=== PATIENT | female | born 1985 | race Two or more races ===

== ENCOUNTER 2016-12-22 10:08 | Inpatient (IN) | payer MEDICAID ==
[~2016-12-22] VITALS: Ht 162.6 cm; Wt 52.2 kg
[2016-12-22] MEDS ORDERED: SODIUM CHLORIDE 0.9% 1,000 ML IV ONE (12:20)
[2016-12-22] MEDS ORDERED: MORPHINE SULFATE 4 MG/ML CPJ (NOT FOR IM USE) IV STA (12:20)
[2016-12-22] MEDS ORDERED: ONDANSETRON HCL 4MG/2ML VIAL IV STA (12:20)
[2016-12-22 12:33] LABS: HEMATOCRIT. 25.1 % (36.0-48.0); HEMOGLOBIN. 7.2 g/dL (12.0-16.0); MEAN CORPUSCULAR HEMOGLOBIN 15.6 pg (28.0-32.0); MEAN CORPUSCULAR VOLUME 54.8 fL (81.0-99.0); MEAN PLATELET VOLUME 8.9 fl (7.4-10.4); PLATELET 436 x1000/uL (130-400); RED BLOOD CELL COUNT 4.59 mill/uL (4.2-5.4)
[2016-12-22 12:38] LABS: CHLORIDE 107 mEq/L (98-107)
[2016-12-22 12:41] LABS: PARTIAL THROMBOPLASTIN TIME 25.1 sec (23.4-31.0); PROTHROMBIN TIME 10.7 sec (9.4-11.6)
[2016-12-22 12:44] LABS: HCG SCREEN NEGATIVE
[2016-12-22 12:47] LABS: CARBON DIOXIDE 24 mEq/L (21-32)
[2016-12-22] MEDS ORDERED: MORPHINE SULFATE 4 MG/ML CPJ (NOT FOR IM USE) IV ONE (13:30)
[2016-12-22 13:44] LABS: PLATELET ESTIMATE INCREASED
[2016-12-22 14:06] LABS: CLARITY URINE CLEAR (CLEAR); COLOR URINE YELLOW (YELLOW); GLUCOSE URINE NEGATIVE (NEGATIVE); KETONES URINE 2+ (NEGATIVE); LEUKOCYTE ESTERASE URINE TRACE (NEGATIVE); NITRITE URINE NEGATIVE (NEGATIVE); OCCULT BLOOD URINE NEGATIVE (NEGATIVE); PROTEIN URINE NEGATIVE (NEGATIVE); SPECIFIC GRAVITY URINE 1.024 (1.005-1.030); UROBILINOGEN URINE 0.2 E.U./dL (0.2-1.0)
[2016-12-22] MEDS ORDERED: POTASSIUM CHLORIDE 20MEQ TABLET SR PO ONE (14:15)
[2016-12-22 14:18] LABS: *AMPHETAMINES SCREEN URINE NEGATIVE (NEGATIVE); *BARBITURATES SCREEN URINE NEGATIVE (NEGATIVE); *BENZODIAZEPINES SCREEN URINE NEGATIVE (NEGATIVE); *COCAINE SCREEN URINE NEGATIVE (NEGATIVE); METHADONE URINE SCREEN NEGATIVE (NEGATIVE); PHENCYCLIDINE URINE SCREEN NEGATIVE (NEGATIVE)
[2016-12-22 14:37] LABS: CANNABINOID URINE SCREEN PRESUMTIVE POSITIVE (NEGATIVE); OPIATES URINE SCREEN PRESUMTIVE POSITIVE (NEGATIVE)
[2016-12-22] MEDS ORDERED: IPRATROPIUM/ALBUTEROL 0.5-3(2.5)MG/3ML NEB INH PRN (15:45)
[2016-12-22] MEDS ORDERED: ACETAMINOPHEN 325MG TABLET PO PRN (15:45)
[2016-12-22] MEDS ORDERED: CLONIDINE 0.1MG TABLET PO PRN (15:45)
[2016-12-22] MEDS: DEXT 5%/0.45% NACL 1000ML 1,000 ML IV SCH ×2 (18:55→23:15)
[2016-12-22] MEDS: ONDANSETRON HCL 4MG/2ML VIAL IV PRN (18:56)
[2016-12-22] MEDS: MORPHINE SULFATE 4 MG/ML CPJ (NOT FOR IM USE) IV PRN (18:56)
[2016-12-22 22:00] VITALS: BP 122/90
[2016-12-22 22:15] VITALS: BP 110/66
[2016-12-22] MEDS ORDERED: ENOXAPARIN 40MG/0.4ML SYR SUBCUT SCH (22:30)
[2016-12-23] VITALS (12 sets, daily range): BP systolic 92–114; BP diastolic 53–70
[2016-12-23] MEDS: MORPHINE SULFATE 4 MG/ML CPJ (NOT FOR IM USE) IV PRN ×3 (00:06→12:26)
[2016-12-23 01:14] LABS: TOTAL IRON BINDING CAPACITY 288 ug/dL (250-450)
[2016-12-23] MEDS: PANTOPRAZOLE 40MG DR TABLET PO SCH ×2 (01:17→06:13)
[2016-12-23] MEDS: DEXT 5%/0.45% NACL KCL 20MEQ/L 1,000 ML IV SCH ×2 (01:45→12:00)
[2016-12-23 07:35] LABS: CHLORIDE 110 mEq/L (98-107)
[2016-12-23 07:59] LABS: VITAMIN B12 SERUM 303 pg/mL (211-911)
[2016-12-23 08:25] LABS: CARBON DIOXIDE 21 mEq/L (21-32); HDL CHOLESTEROL 42 mg/dL (40-59); LDL CHOLESTEROL 56 mg/dL (5-100); T4 FREE 1.18 ng/dL (0.76-1.46); TROPONIN I < 0.02 ng/mL (0.00-0.04)
[2016-12-23 09:38] LABS: BASOPHILS % 0.4 % (0.0-2.0); EOSINOPHILS % 1.1 % (0.0-5.0); LYMPHOCYTES % 47.4 % (20.0-50.0); MEAN CORPUSCULAR HEMOGLOBIN 15.8 pg (28.0-32.0); MEAN CORPUSCULAR VOLUME 55.1 fL (81.0-99.0); MONOCYTES % 4.7 % (2.0-8.0); NEUTROPHILS % 46.4 % (40.0-76.0); PLATELET 360 x1000/uL (130-400); RED BLOOD CELL COUNT 3.86 mill/uL (4.2-5.4); RED CELL DISTRIBUTION WIDTH 20.1 % (11.6-14.6)
[2016-12-23 09:45] LABS: HEMATOCRIT. 21.2 % (36.0-48.0); HEMOGLOBIN. 6.1 g/dL (12.0-16.0)
[2016-12-23] MEDS: ONDANSETRON HCL 4MG/2ML VIAL IV PRN (12:25)
[2016-12-23 17:43] LABS: BASOPHILS % 0.4 % (0.0-2.0); EOSINOPHILS % 1.1 % (0.0-5.0); HEMATOCRIT. 31.6 % (36.0-48.0); HEMOGLOBIN. 9.5 g/dL (12.0-16.0); MEAN CORPUSCULAR VOLUME 63.5 fL (81.0-99.0); MONOCYTES % 4.5 % (2.0-8.0); PLATELET 334 x1000/uL (130-400); RED BLOOD CELL COUNT 4.98 mill/uL (4.2-5.4); RED CELL DISTRIBUTION WIDTH 29.9 % (11.6-14.6)
== END 2016-12-23 19:00 | disposition home or self-care (01) | DRG 532 ==
LOC: ER 13:30 → 6EST 14:16 → ENRESERV 21:09 → 6WST 12-23 02:31
PROVIDERS: ADMIT Internal Medicine; ATTEND Internal Medicine
PROC: 30233N1 Transfusion of Nonautologous Red Blood Cells into Peripheral Vein, Percutaneous Approach (ICD-10-PCS; principal; 2016-12-23)
DX: D25.9 Leiomyoma of uterus, unspecified (principal); D62 Acute posthemorrhagic anemia; E87.6 Hypokalemia; D64.9 Anemia, unspecified; K21.9 Gastro-esophageal reflux disease without esophagitis; Z88.8 Allergy status to other drugs, medicaments and biological substances; Z88.0 Allergy status to penicillin; Z91.040 Latex allergy status
CPT/HCPCS: 36415; 71010; 74176; 76830; 76856; 80053; 80061; 80305; 81001; 82607; 83540; 83550; 83690; 84439; 84443; 84484; 84703; 85025; 85610; 85730; 86850; 86900; 86920; 93005; 96361; 96374; 96375; 96376; 99285; J1650; J2270; J2405; J7030; J7050; P9016